=== PATIENT | female | born 1970 | race Asian ===

== ENCOUNTER 2020-03-09 07:24 | Outpatient (CLI) | payer OTHER | END 2020-03-09 07:35 | disposition home or self-care (01) | LOC: LAB 07:24 | DX: B88.8 Other specified infestations (principal); B82.9 Intestinal parasitism, unspecified ==

== ENCOUNTER 2020-03-09 08:33 | Outpatient (CLI) | payer OTHER | END 2020-03-09 08:50 | disposition home or self-care (01) | LOC: MRI 08:33 → TOM 08:33 → MRI 08:50 | PROVIDERS: ATTEND General Practice | DX: R10.2 Pelvic and perineal pain (principal); R10.30 Lower abdominal pain, unspecified; B82.9 Intestinal parasitism, unspecified | CPT/HCPCS: 72197; 74183 ==

== ENCOUNTER 2020-04-18 07:35 | Outpatient (CLI) | payer OTHER | END 2020-04-18 07:46 | disposition home or self-care (01) | LOC: LAB 07:35 | PROVIDERS: ATTEND Obstetrics & Gynecology | DX: D50.8 Other iron deficiency anemias (principal); D64.89 Other specified anemias; E56.8 Deficiency of other vitamins; I10 Essential (primary) hypertension; E78.2 Mixed hyperlipidemia; E55.9 Vitamin D deficiency, unspecified; Z12.11 Encounter for screening for malignant neoplasm of colon ==

== ENCOUNTER 2020-04-23 10:31 | Outpatient (CLI) | payer OTHER | END 2020-04-23 13:51 | disposition home or self-care (01) | LOC: LAB 10:31 | PROVIDERS: ATTEND Obstetrics & Gynecology | DX: D50.8 Other iron deficiency anemias (principal); D64.89 Other specified anemias; E56.8 Deficiency of other vitamins; I10 Essential (primary) hypertension; E78.2 Mixed hyperlipidemia; E55.9 Vitamin D deficiency, unspecified; Z12.11 Encounter for screening for malignant neoplasm of colon ==

== ENCOUNTER 2020-05-04 14:18 | Outpatient (CLI) | payer OTHER | END 2020-05-04 14:27 | disposition home or self-care (01) | LOC: NUCLEAR 14:18 | PROVIDERS: ATTEND Obstetrics & Gynecology | DX: M81.0 Age-related osteoporosis without current pathological fracture (principal) ==

== ENCOUNTER → 2020-05-04 | Outpatient (CLI) | payer OTHER | END | disposition home or self-care (01) | LOC: MAMO-SONO 13:45 | PROVIDERS: ATTEND Obstetrics & Gynecology | DX: Z12.31 Encounter for screening mammogram for malignant neoplasm of breast (principal); N64.4 Mastodynia ==

== ENCOUNTER → 2020-06-14 | Outpatient (CLI) | payer OTHER | END | disposition home or self-care (01) | LOC: MRI 07:18 | PROVIDERS: ATTEND Internal Medicine Gastroenterology | DX: K86.2 Cyst of pancreas (principal) | CPT/HCPCS: 74181 ==

== ENCOUNTER 2021-02-20 08:15 | Outpatient (CLI) | payer OTHER | END 2021-02-20 08:21 | disposition home or self-care (01) | LOC: LAB 08:15 | PROVIDERS: ATTEND Radiology Diagnostic Radiology | DX: K21.9 Gastro-esophageal reflux disease without esophagitis (principal) ==

== ENCOUNTER 2021-02-20 11:01 | Outpatient (CLI) | payer OTHER | END 2021-02-20 11:27 | disposition home or self-care (01) | LOC: MRI 11:01 | PROVIDERS: ATTEND Internal Medicine Gastroenterology | DX: K86.2 Cyst of pancreas (principal); R14.3 Flatulence; K21.9 Gastro-esophageal reflux disease without esophagitis | CPT/HCPCS: 74182 ==

== ENCOUNTER 2022-02-18 09:23 | Emergency (ER) | payer OTHER ==
[~2022-02-18] VITALS: Ht 154.9 cm; Wt 55.8 kg
[2022-02-18] MEDS ORDERED: [UNRECOGNIZED DRUG - OTHER] (09:50)
== END 2022-02-18 12:53 | disposition home or self-care (01) ==
LOC: ER 09:23
DX: N39.0 Urinary tract infection, site not specified (principal); R31.9 Hematuria, unspecified; M54.59 Other low back pain

== ENCOUNTER 2022-02-22 07:40 | Outpatient (CLI) | payer OTHER ==
[~2022-02-22 07:40] MED LIST: [UNRECOGNIZED DRUG - OTHER]
== END 2022-02-22 07:51 | disposition home or self-care (01) ==
LOC: LAB 07:40
PROVIDERS: ATTEND Obstetrics & Gynecology
DX: N92.5 Other specified irregular menstruation (principal)

== ENCOUNTER 2022-02-22 08:08 | Outpatient (CLI) | payer OTHER | END 2022-02-22 14:52 | disposition home or self-care (01) | LOC: MAMO-SONO 08:08 | PROVIDERS: ATTEND Obstetrics & Gynecology | DX: Z12.31 Encounter for screening mammogram for malignant neoplasm of breast (principal); N60.11 Diffuse cystic mastopathy of right breast ==

== ENCOUNTER → 2022-02-27 07:27 | Outpatient (CLI) | payer OTHER | END | disposition home or self-care (01) | LOC: LAB 07:27 | PROVIDERS: ATTEND Obstetrics & Gynecology | DX: N91.1 Secondary amenorrhea (principal) ==

== ENCOUNTER 2022-04-14 09:02 | Emergency (ER) | payer OTHER ==
[~2022-04-14] VITALS: Ht 154.9 cm; Wt 58.1 kg
[2022-04-14] MEDS ORDERED: HYOSCYAMINE0.125 M1 SL (09:16)
== END 2022-04-14 10:29 | disposition home or self-care (01) ==
LOC: ER 09:02
DX: M54.9 Dorsalgia, unspecified (principal); B02.9 Zoster without complications

== ENCOUNTER → 2022-05-15 07:26 | Outpatient (CLI) | payer OTHER ==
[~2022-05-15 07:26] MED LIST changes: +HYOSCYAMINE0.125 M1 SL
== END | disposition home or self-care (01) ==
LOC: LAB 07:26
PROVIDERS: ATTEND Obstetrics & Gynecology
DX: I10 Essential (primary) hypertension (principal); E78.2 Mixed hyperlipidemia

== ENCOUNTER 2022-05-28 07:45 | Inpatient (IN) | payer OTHER ==
[~2022-05-28] VITALS: Ht 154.9 cm; Wt 58.1 kg
[2022-06-01] MEDS ORDERED: NAPR500T14 PO (08:58)
[2022-06-01] MEDS ORDERED: Tylenol #3 PO (08:58)
== END 2022-06-01 10:10 | disposition home or self-care (01) | DRG 743 ==
LOC: SURH 05-31 07:45 → O/R 05-31 08:40 → SURH 05-31 09:00 → O/R 05-31 11:37 → SURH 05-31 18:28 → O/R 05-31 18:30 → SURH 05-31 23:53
PROVIDERS: ADMIT Obstetrics & Gynecology; ATTEND Obstetrics & Gynecology
PROC: 0UT6FZZ Resection of Left Fallopian Tube, Via Natural or Artificial Opening With Percutaneous Endoscopic Assistance (ICD-10-PCS; 2022-05-31)
PROC: 0UT1FZZ Resection of Left Ovary, Via Natural or Artificial Opening With Percutaneous Endoscopic Assistance (ICD-10-PCS; 2022-05-31)
PROC: 0UQF4ZZ Repair Cul-de-sac, Percutaneous Endoscopic Approach (ICD-10-PCS; 2022-05-31)
PROC: 0USG4ZZ Reposition Vagina, Percutaneous Endoscopic Approach (ICD-10-PCS; 2022-05-31)
PROC: 0TJB8ZZ Inspection of Bladder, Via Natural or Artificial Opening Endoscopic (ICD-10-PCS; 2022-05-31)
PROC: 0UT9FZZ Resection of Uterus, Via Natural or Artificial Opening With Percutaneous Endoscopic Assistance (ICD-10-PCS; principal; 2022-05-31 09:00)
DX: N85.01 Benign endometrial hyperplasia (principal); Z20.822 Contact with and (suspected) exposure to COVID-19; N83.12 Corpus luteum cyst of left ovary

== ENCOUNTER → 2022-09-19 07:49 | Outpatient (CLI) | payer OTHER ==
[~2022-09-19 07:49] MED LIST changes: +NAPR500T14 PO; +Tylenol #3 PO
== END | disposition home or self-care (01) ==
LOC: LAB 07:49
PROVIDERS: ATTEND Radiology Diagnostic Radiology
DX: K86.2 Cyst of pancreas (principal)

== ENCOUNTER → 2022-09-20 | Outpatient (CLI) | payer OTHER | END | disposition home or self-care (01) | LOC: MRI 09:35 | PROVIDERS: ATTEND Internal Medicine Gastroenterology | DX: K86.2 Cyst of pancreas (principal) | CPT/HCPCS: 74182 ==

== ENCOUNTER 2023-01-12 07:25 | Outpatient (CLI) | payer OTHER | END 2023-01-12 07:33 | disposition home or self-care (01) | LOC: LAB 07:25 | DX: R00.2 Palpitations (principal); I11.9 Hypertensive heart disease without heart failure; E11.9 Type 2 diabetes mellitus without complications; E78.2 Mixed hyperlipidemia; Z11.52 Encounter for screening for COVID-19; Z20.822 Contact with and (suspected) exposure to COVID-19; Z20.828 Contact with and (suspected) exposure to other viral communicable diseases ==

== ENCOUNTER 2023-11-04 07:55 | Outpatient (CLI) | payer OTHER ==
[2023-11-04 09:25] LABS: HEMATOCRIT 38.8 % (36.0-45.00); MEAN CELL VOLUME 85.5 fL (80.00-100.00); MEAN CORPUSCULAR HEMOGLOBIN 28.7 pg (27.00-32.0); MEAN CORPUSCULAR HGB CONC 33.6 g/dl (32.0-36.0); PLATELET COUNT 211 K/uL (150-450); RED BLOOD COUNT 4.53 M/uL (4.00-6.00); RED CELL DISTRIBUTION WIDTH 13.2 % (11.5-14.5)
[2023-11-04 09:41] LABS: PH,URINE 5.5 (5.0-8.0); URINE APPEARANCE Clear; URINE BACTERIA 898.2 uL (0.0-1933); URINE BILIRRUBIN Negative (NEGATIVE); URINE BLOOD Negative; URINE COLOR Yellow; URINE EPITHELIAL CELLS 14.2 uL (0.0-38.8); URINE GLUCOSE Negative (NEGATIVE); URINE LEUKOCYTE Negative; URINE NITRATE Negative; URINE PROTEIN Negative (NEGATIVE); URINE RBC 3.7 uL (0.0-20.8); URINE UROBILINOGEN 0.2 E.U./dl
[2023-11-04 09:50] LABS: URINE WBC 1.3 uL (0.0-23.2)
[2023-11-04 10:00] LABS: ALBUMIN 4.1 gm/dL (3.4-5.0); BILIRUBIN TOTAL 0.37 mg/dL (0.3-1.2); CALCIUM 9.5 mg/dL (8.5-10.1); CREATININE SERUM 0.77 mg/dL (0.55-1.02); GFR 77.83; GLOBULINA 3.2 G/DL (2.4-3.5); POTASSIUM 4.4 mEq/L (3.5-5.1); T4 TOTAL 11.04 UG/DL (4.8-13.9); TOTAL PROTEIN 7.3 gm/dL (6.4-8.2); TSH 2.37 uIU/mL (0.358-3.74)
[2023-11-04 11:25] LABS: T3 TOTAL 1.05 ng/ml (0.846-2.02); VITAMIN D3 25 HYDROXY 27.47 ng/ml (30-120)
== END 2023-11-04 07:56 | disposition home or self-care (01) ==
LOC: LAB 07:55
DX: N30.00 Acute cystitis without hematuria (principal); E03.9 Hypothyroidism, unspecified; E72.51 Non-ketotic hyperglycinemia; E78.2 Mixed hyperlipidemia; R80.9 Proteinuria, unspecified; E55.9 Vitamin D deficiency, unspecified; R17 Unspecified jaundice; Z11.59 Encounter for screening for other viral diseases

== ENCOUNTER 2023-11-04 09:37 | Outpatient (CLI) | payer OTHER | END 2023-11-04 09:41 | disposition home or self-care (01) | LOC: MAMO-SONO 09:37 | PROVIDERS: ATTEND Obstetrics & Gynecology | DX: N60.19 Diffuse cystic mastopathy of unspecified breast (principal) ==

== ENCOUNTER → 2024-05-15 07:08 | Outpatient (CLI) | payer OTHER ==
[2024-05-15 08:44] LABS: CREATININE SERUM 0.76 mg/dL (0.55-1.02)
== END | disposition home or self-care (01) ==
LOC: LAB 07:08
PROVIDERS: ATTEND Radiology Diagnostic Radiology
DX: K63.5 Polyp of colon (principal); M54.50 Low back pain, unspecified; K86.2 Cyst of pancreas; K58.9 Irritable bowel syndrome, unspecified; R10.30 Lower abdominal pain, unspecified
CPT/HCPCS: 74183

== ENCOUNTER → 2024-05-15 | Outpatient (CLI) | payer OTHER | END | disposition home or self-care (01) | LOC: MRI 08:31 | PROVIDERS: ATTEND Internal Medicine Gastroenterology | DX: K63.5 Polyp of colon (principal); M54.50 Low back pain, unspecified; K86.2 Cyst of pancreas; K58.9 Irritable bowel syndrome, unspecified; R10.30 Lower abdominal pain, unspecified ==

== ENCOUNTER 2025-04-19 09:36 | Outpatient (CLI) | payer OTHER ==
[2025-04-19 12:01] LABS: PHOSPHOKINASE CREATININE 84.0 U/L (26-192)
[2025-04-20 09:11] LABS: COMPLEMENT C3 122 mg/dL (82-167); COMPLEMENT C4 26 mg/dL (12-38)
== END 2025-04-19 09:43 | disposition home or self-care (01) ==
LOC: LAB 09:36
DX: M25.50 Pain in unspecified joint (principal); G89.29 Other chronic pain; M79.10 Myalgia, unspecified site; R69 Illness, unspecified; M19.041 Primary osteoarthritis, right hand; M77.12 Lateral epicondylitis, left elbow; M77.11 Lateral epicondylitis, right elbow; M25.552 Pain in left hip; M25.551 Pain in right hip

== ENCOUNTER 2025-04-19 11:07 | Outpatient (CLI) | payer OTHER | END 2025-04-19 11:25 | disposition home or self-care (01) | LOC: RAD 11:07 | DX: M25.50 Pain in unspecified joint (principal); G89.29 Other chronic pain; M79.10 Myalgia, unspecified site; R69 Illness, unspecified; M19.041 Primary osteoarthritis, right hand; M77.12 Lateral epicondylitis, left elbow; M77.11 Lateral epicondylitis, right elbow; M25.552 Pain in left hip; M25.551 Pain in right hip ==

== ENCOUNTER 2025-05-04 07:42 | Outpatient (CLI) | payer OTHER | END 2025-05-04 07:58 | disposition home or self-care (01) | LOC: MAMO-SONO 07:42 | DX: N60.21 Fibroadenosis of right breast (principal); N60.31 Fibrosclerosis of right breast; N60.01 Solitary cyst of right breast; N60.02 Solitary cyst of left breast; Z12.39 Encounter for other screening for malignant neoplasm of breast ==

== ENCOUNTER 2025-05-28 08:27 | Outpatient (CLI) | payer OTHER | END 2025-05-28 08:42 | disposition home or self-care (01) | LOC: MRI 08:27 | PROVIDERS: ATTEND Internal Medicine Gastroenterology | DX: K86.2 Cyst of pancreas (principal); M54.50 Low back pain, unspecified; K63.5 Polyp of colon; R10.30 Lower abdominal pain, unspecified | CPT/HCPCS: 74183 ==